=== PATIENT | female | born 1970 | race Caucasian/White ===

== ENCOUNTER 2016-11-30 16:24 | Emergency (ER) | payer OTHER ==
[~2016-11-30] VITALS: Ht 160 cm; Wt 85.0 kg
[2016-11-30 16:27] VITALS: BP 152/83; PULSE 102; RESP 18; TEMP 98.9; O2SAT 100
[2016-11-30] MEDS ORDERED: BUSP1TAB PO (17:02)
[2016-11-30] MEDS ORDERED: VIST50CA PO (17:02)
[2016-11-30] MEDS ORDERED: LORazepam 0.5 MG TAB PO ONE (17:30)
--- NOTE | 2016-11-30 17:32 | PD ---
HPI Chief Complaint: Anxiety Time Seen by Provider: 17:24 Travel History International Travel<30 days: No Contact w/Intl Traveler<30days: No Traveled to known affect area: No History of Present Illness HPI 46-year-old female patient with history of panic attacks and anxiety attacks in the past, presents to the ER today because she states that she had recently moved from [place], started new work, and has been very stressed out about it has been having panic attacks for the last week. She was seen by her primary care doctor and had been given Vistaril but she states that that is not working. She has not been able to sleep in several days and she states that she is feeling very anxious. She has palpitations, and gets tearful and feels like she is having panic attacks, especially with laying down to sleep. She states that she has to sleep on her couch instead because of this issue. She denies any suicidal or homicidal ideation. Modifying Factors: None Associated Signs & Symptoms: Worsening of panic attacks Risk Factors: History of panic attacks PFSH Past Medical History ?: Not LMP: 11/02/2016 Menopausal: No : 1 Para: 1 Social History Alcohol Use: Yes (occassional) Tobacco Use: No Substance Use: No Allergies-Medications (Allergen,Severity, Reaction): Coded Allergies: No Known Allergies (Unverified , 11/30/16) Reported Meds & Prescriptions Reported Meds & Active Scripts Active Reported Buspirone (Buspirone HCl) 7.5 Mg Tab 7.5 Mg PO TID Vistaril (Hydroxyzine Pamoate) 50 Mg Cap 50 Mg PO TID Review of Systems Except as stated in HPI: all other systems reviewed are Neg Physical Exam Narrative GENERAL: Well-developed very anxious appearing middle age white female patient currently in moderate distress, tearful on telling me the story. Awake and oriented 3. SKIN: Focused skin assessment warm/dry. HEAD: Atraumatic. Normocephalic. EYES: Pupils equal and round. No scleral icterus. No injection or drainage. ENT: No nasal bleeding or discharge. Mucous membranes pink and moist. NECK: Trachea midline. No JVD. CARDIOVASCULAR: Regular rate and rhythm. No murmur appreciated. RESPIRATORY: No accessory muscle use. Clear to auscultation. Breath sounds equal bilaterally. GASTROINTESTINAL: Abdomen soft, non-tender, nondistended. Hepatic and splenic margins not palpable. MUSCULOSKELETAL: No obvious deformities. No clubbing. No cyanosis. No edema. NEUROLOGICAL: Awake and alert. No obvious cranial nerve deficits. Motor grossly within normal limits. Normal speech. PSYCHIATRIC: Appropriate mood and affect; insight and judgment normal. Data Data Last Documented VS Vital Signs Date Time Temp Pulse Resp B/P (MAP) Pulse Ox O2 Delivery O2 Flow Rate FiO2 11/30/16 16:27 98.9 102 18 152/83 (106) 100 Orders Orders Lorazepam (Ativan) (11/30/16 17:30) [facility] Medical Decision Making Medical Screen Exam Complete: Yes Emergency Medical Condition: Yes Medical Record Reviewed: Yes Differential Diagnosis Anxiety attacks Narrative Course EKG strips chose normal sinus rhythm at a rate of 100 bpm. Vital signs are stable in the ER. Patient was given a dose of Ativan in the ER. Plan would be to release her with Ativan for tomorrow and have her follow-up on Friday with her primary care doctor. Return for any new issues as needed. The plan has discussed with her and she states understanding. Diagnosis Primary Impression: Anxiety attack Med/Other Pt SpecificInfo: Prescription(s) given, Med Stopped (avoid taking this with your existing anxiety medications at the same time) Scripts Lorazepam (Ativan) 0.5 Mg Tab 0.5 MG PO HS Y for ANXIETY AND/OR AGITATION, #3 TAB 0 Refills Prov: Marc Quiles MD 11/30/16 Disposition: 01 DISCHARGE HOME Condition: Stable Marc Quiles MD Nov 30, 2016 17:32
[2016-11-30] MEDS ORDERED: LORA-392 PO (18:11)
== END 2016-11-30 18:53 | disposition home or self-care (01) ==
LOC: NEPC 16:24
DX: F41.1 Generalized anxiety disorder (principal)
CPT/HCPCS: 99283